=== PATIENT | female | born 1950 ===

== ENCOUNTER 2020-12-02 07:40 | Outpatient (CLI) | payer OTHER | END 2020-12-02 07:48 | disposition home or self-care (01) | LOC: TOM 07:40 | PROVIDERS: ATTEND Internal Medicine Gastroenterology | DX: K57.90 Diverticulosis of intestine, part unspecified, without perforation or abscess without bleeding (principal); K44.9 Diaphragmatic hernia without obstruction or gangrene; Z12.11 Encounter for screening for malignant neoplasm of colon ==

== ENCOUNTER 2021-10-30 08:57 | Outpatient (CLI) | payer OTHER | END 2021-10-30 09:00 | disposition home or self-care (01) | LOC: SONOGRAMA 08:57 | PROVIDERS: ATTEND Pathology Anatomic Pathology & Clinical Pathology | DX: E04.2 Nontoxic multinodular goiter (principal) ==

== ENCOUNTER 2022-10-05 08:04 | Outpatient (CLI) | payer OTHER | END 2022-10-05 08:14 | disposition home or self-care (01) | LOC: TOM 08:04 | PROVIDERS: ATTEND Internal Medicine Gastroenterology | DX: K56.600 Partial intestinal obstruction, unspecified as to cause (principal) ==